=== PATIENT | female | born 2000 | race Caucasian/White ===

== ENCOUNTER 2021-07-11 18:47 | Emergency (ER) | payer MEDICAID ==
--- NOTE | 2021-07-11 19:27 | Diagnostic Imaging Report ---
Indication: Chest pain PA and lateral views of the chest are obtained. COMPARISON: No previous study is available for comparison at this time. FINDINGS: Heart size and pulmonary vasculature are within normal limits, and the lungs are clear, bilaterally. IMPRESSION: Unremarkable chest. Dictated by: Dictated on workstation # [id number]
[2021-07-11 19:36] LABS: BILIRUBIN,URINE NEGATIVE (NEGATIVE); CLARITY,URINE CLEAR; COLOR,URINE YELLOW; GLUCOSE, URINE (UA) NEGATIVE (NEGATIVE); KETONES,URINE NEGATIVE (NEGATIVE); LEUKOCYTE ESTERASE ,URINE NEGATIVE (NEGATIVE); NITRITE,URINE NEGATIVE (NEGATIVE); PROTEIN,URINE 1+ (NEGATIVE)
--- NOTE | 2021-07-11 19:42 | ED Cardiac General ---
History of Present Illness General Chief Complaint: Cardiac/General Problems Stated Complaint: CHEST PAIN, HIGH HEART RATE Nursing Triage Note: PT AMB TO RM 3 WITH FAMILY WITH C/O CHEST PAIN FOR A FEW DAYS THAT IS SHARP AND INTERMITTENT. PT SAW PCP IN [facility] YESTERDAY AND WAS TOLD HE WANTS TO PUT HER ON A HALTER MONITOR NEXT WEEK Source: patient History of Present Illness Date Seen by Provider: Jul 11, 2021 Time Seen by Provider: 19:09 Initial Comments PT ARRIVES VIA POV FROM HOME WITH AUNT AND OTHER CHILDREN PT C/O LEFT UPPER CHEST PAIN AND ELEVATED HEART RATE--STATES ON HER PHONE, IT HAS REPORTED HEART RATE HIGH 180, BUT NOT THAT HIGH RECENTLY STATES "IT'S BEEN GOING ON FOR AWHILE NOW"--ONGOING FOR A COUPLE OF MONTHS SYMPTOMS COME AND GO AND IS NOT PRESENT NOW NOTHING WORSENS OR IMPROVES SYMPTOMS OCCASIONALLY GETS A LITTLE SHORT OF BREATH WITH IT, BUT NOT NOW. NO DIZZINESS OR SYNCOPE NO NAUSEA/VOMITING NO FEVER OR RECENT ILLNESS NO COUGH, ETC PT DID HAVE A SPONTANEOUS PNEUMOTHORAX 04/2020 DUE TO VAPING--DID REQUIRE A CHEST TUBE AT THAT TIME. PT STATES THIS DOES NOT FEEL LIKE THAT AT ALL STATES SHE NO LONGER VAPES AND DOES NOT SMOKE CIGARETTES OR ANY SUBSTANCE. DENIES ANY SIGNIFICANT CAFFEINE USE OR ENERGY DRINKS, ETC. SYMPTOMS ARE NO DIFFERENT TONIGHT IN ANY WAY. WENT TO SEE JORJE ROPER IN [facility] ON FRIDAY/ YESTERDAY FOR THIS PROBLEM. NO TESTS WERE DONE. NO RX'S GIVEN PT STATES "HE WANTED TO DO A HOLTER MONITOR, BUT THERE WEREN'T ANY AVAILABLE YESTERDAY" AT [facility]. SHE STATES HE WAS ALSO GOING TO REFER HER TO A AUTOMOBILE SEAT COVER INSTALLER IN [place]. LMP--2 WEEKS AGO, QUIT TAKING CONTROL PILLS 1 WEEK AGO PCP: JORJE ROPER. [facility] Review of Systems Review of Systems Constitutional: no symptoms reported; No chills, No diaphoresis, No dizziness, No fever, No malaise, No weakness Respiratory: See HPI Cardiovascular: See HPI Gastrointestinal: No Symptoms Reported Genitourinary: No Symptoms Reported Musculoskeletal: no symptoms reported Skin: no symptoms reported Psychiatric/Neurological: No Symptoms Reported Endocrine: No Symptoms Reported Hematologic/Lymphatic: No Symptoms Reported Past Jjjmuxu-Schizr-Bzyctz Hx Patient Social History Tobacco Use?: No Use of E-Cig and/or Vaping dev: No Substance use?: No Alcohol Use?: No Pt feels they are or have been: No Immunizations Up To Date First/Initial COVID19 Vaccinat: 2020 Second COVID19 Vaccination Raheel: 2020 COVID19 Vaccine General Assistant: EWELINA Past Medical History Last Menstrual Period: Jun 27, 2021 Physical Exam Vital Signs Vital Signs - First Documented 07/11/21 18:50 Temp 36.1 Pulse 107 Resp 18 B/P (MAP) 131/80 (97) Capillary Refill : Height, Weight, BMI Height: '" Weight: lbs. oz. kg; BMI Method: General Appearance: No Apparent Distress, WD/WN, Other (DOES NOT APPEAR ILL OR TO BE IN ANY DISCOMFORT OR DISTRESS) Neck: Normal Inspection Respiratory: Chest Non Tender, Normal Breath Sounds, No Accessory Muscle Use, No Respiratory Distress Cardiovascular: Regular Rate, Rhythm, No Edema, No JVD, No Murmur, Normal Peripheral Pulses Gastrointestinal: Non Tender, Soft Progress/Results/Core Measures Results/Orders Lab Results Laboratory Tests Test 07/11/21 19:27 07/11/21 19:45 Range/Units Urine Color YELLOW Urine Clarity CLEAR Urine pH 6.0 5-9 Urine Specific [place] >=1.030 1.016-1.022 Urine Protein 1+ H NEGATIVE Urine Glucose (UA) NEGATIVE NEGATIVE Urine Ketones NEGATIVE NEGATIVE Urine Nitrite NEGATIVE NEGATIVE Urine Bilirubin NEGATIVE NEGATIVE Urine Urobilinogen 0.2 < = 1.0 MG/DL Urine Leukocyte Esterase NEGATIVE NEGATIVE Urine RBC (Auto) 1+ H NEGATIVE Urine RBC NONE /HPF Urine WBC 5-10 H /HPF Urine Squamous Epithelial Cells 0-2 /HPF Urine Renal Epithelial Cells NONE /HPF Urine Crystals NONE /LPF Urine Bacteria LARGE H /HPF Urine Casts NONE /LPF Urine Mucus NEGATIVE /LPF Urine Culture Indicated YES Urine Opiates Screen NEGATIVE NEGATIVE Urine Oxycodone Screen NEGATIVE NEGATIVE Urine Methadone Screen NEGATIVE NEGATIVE Urine Propoxyphene Screen NEGATIVE NEGATIVE Urine Barbiturates Screen NEGATIVE NEGATIVE Ur Tricyclic Antidepressants Screen NEGATIVE NEGATIVE Urine Phencyclidine Screen NEGATIVE NEGATIVE Urine Amphetamines Screen NEGATIVE NEGATIVE Urine Methamphetamines Screen NEGATIVE NEGATIVE Urine Benzodiazepines Screen NEGATIVE NEGATIVE Urine Cocaine Screen NEGATIVE NEGATIVE Urine Cannabinoids Screen NEGATIVE NEGATIVE White Blood Count 8.8 4.3-11.0 10^3/uL Red Blood Count 4.18 3.80-5.11 10^6/uL Hemoglobin 12.7 11.5-16.0 g/dL Hematocrit 38 35-52 % Mean Corpuscular Volume 91 80-99 fL Mean Corpuscular Hemoglobin 30 25-34 pg Mean Corpuscular Hemoglobin Concent 33 32-36 g/dL Red Cell Distribution Width 12.4 10.0-14.5 % Platelet Count 224 130-400 10^3/uL Mean Platelet Volume 11.9 9.0-12.2 fL Immature Granulocyte % (Auto) 0 % Neutrophils (%) (Auto) 60 42-75 % Lymphocytes (%) (Auto) 29 12-44 % Monocytes (%) (Auto) 9 0-12 % Eosinophils (%) (Auto) 1 0-10 % Basophils (%) (Auto) 0 0-10 % Neutrophils # (Auto) 5.3 1.8-7.8 10^3/uL Lymphocytes # (Auto) 2.5 1.0-4.0 10^3/uL Monocytes # (Auto) 0.8 0.0-1.0 10^3/uL Eosinophils # (Auto) 0.1 0.0-0.3 10^3/uL Basophils # (Auto) 0.0 0.0-0.1 10^3/uL Immature Granulocyte # (Auto) 0.0 0.0-0.1 10^3/uL D-Dimer 0.25 0.00-0.49 UG/ML Sodium Level 141 135-145 MMOL/L Potassium Level 3.5 L 3.6-5.0 MMOL/L Chloride Level 105 98-107 MMOL/L Carbon Dioxide Level 21 21-32 MMOL/L Anion Gap 15 H 5-14 MMOL/L Blood Urea Nitrogen 11 7-18 MG/DL Creatinine 0.83 0.60-1.30 MG/DL Estimat Glomerular Filtration Rate 104 BUN/Creatinine Ratio 13 Glucose Level 105 70-105 MG/DL Calcium Level 9.3 8.5-10.1 MG/DL Corrected Calcium 9.0 8.5-10.1 MG/DL Magnesium Level 1.8 1.6-2.4 MG/DL Total Bilirubin 0.3 0.1-1.0 MG/DL Aspartate Amino Transf (AST/SGOT) 21 5-34 U/L Alanine Aminotransferase (ALT/SGPT) 25 0-55 U/L Alkaline Phosphatase 80 40-136 U/L Troponin I < 0.028 <0.028 NG/ML B-Type Natriuretic Peptide < 10.0 <100.0 PG/ML Total Protein 7.3 6.4-8.2 GM/DL Albumin 4.4 3.2-4.5 GM/DL TSH [place] Testing 2.69 0.35-4.94 UIU/ML My Orders Orders - RITANIRANJAN Layne Ed Iv/Invasive Line Start (07/11/21 19:09) Urine Bedside (07/11/21 19:09) Ekg Tracing (07/11/21 19:09) Monitor-Rhythm Ecg Trace Only (07/11/21 19:09) Bnp [place] (07/11/21 19:09) Cbc With Automated Diff (07/11/21 19:09) Comprehensive Metabolic Panel (07/11/21 19:09) Fibrin Degradation Products (07/11/21 19:09) Drug Screen Stat (Urine) (07/11/21 19:09) Magnesium (07/11/21 19:09) Thyroid Analyzer (07/11/21 19:09) Ua Culture If Indicated (07/11/21 19:09) Troponin I Jossie (07/11/21 19:09) Chest Pa/Lat (2 View) (07/11/21 19:09) Urine Culture (07/11/21 19:27) Vital Signs/I&O 07/11/21 18:50 Temp 36.1 Pulse 107 Resp 18 B/P (MAP) 131/80 (97) Blood Pressure Mean: 97 Progress Progress Note : Progress Note NO SYMPTOMS DURING ER STAY NO CHEST PAIN NO SENSATION OF PALPITATIONS OR ARRHYTHMIAS. HAD MILD TACHYCARDIA UP TO 110'S--PT STATES SHE IS ANXIOUS DUE TO AN BELLIGERENT AND AGITATED PATIENT IN ADJACENT BED IN SAME ROOM PATIENT. NO DYSPNEA NO HYPOXIA BP NORMAL. Initial ECG Impression Date: Jul 11, 2021 Initial ECG Impression Time: 20:04 Initial ECG Rate: 111 Initial ECG Rhythm: S.Tach Diagnostic Imaging Comments CXR--PER RADIOLOGIST REPORT AT 1942 time. FINDINGS: Heart size and pulmonary vasculature are within normal limits, and the lungs are clear, bilaterally. IMPRESSION: Unremarkable chest. Reviewed: Reviewed by Me Departure Impression Primary Impression: MILD TACHYCARDIA Additional Impressions: Chest pain Anxiety UTI (urinary tract infection) Disposition: HOME, SELF-CARE Condition: Stable Departure-Patient Inst. Decision time for Depature: 20:44 Referrals: JAKE MAGAÑA JR, MD Patient Instructions: Chest Pain, Adult ED, Palpitations (DC), Urinary Tract Infection, Adult ED Add. Discharge Instructions: HOME, REST NO CAFFEINE OR ENERGY DRINKS, ETC. FOLLOW UP WITH DR. MAGAÑA, AUTOMOBILE SEAT COVER INSTALLER, OR WITH AUTOMOBILE SEAT COVER INSTALLER IN [place] THAT IS BEING ARRANGED BY YOUR LARD REFINER IN [facility]. RETURN TO ER IF SYMPTOMS WORSEN All discharge instructions reviewed with patient and/or family. Voiced understanding. Scripts Nitrofurantoin Monohyd/M-Cryst (Macrobid 100 mg Capsule) 100 Mg Capsule 1 TAB PO BID, #20 CAP Prov: NIRANJAN SALINAS DO 07/11/21 NIRANJAN SALINAS DO Jul 11, 2021 19:42
[2021-07-11 19:45] LABS: BACTERIA,URINE LARGE /HPF; SQUAMOUS EPITHELIAL CELL,UR 0-2 /HPF
[2021-07-11 19:48] LABS: AMPHETAMINE SCREEN, URINE NEGATIVE (NEGATIVE); BARBITURATE SCREEN URINE NEGATIVE (NEGATIVE); BENZODIAZEPINES SCREEN URINE NEGATIVE (NEGATIVE); CANNABINOID SCREEN, URINE NEGATIVE (NEGATIVE); COCAINE SCREEN URINE NEGATIVE (NEGATIVE); METHADONE STAT NEGATIVE (NEGATIVE); METHAMPHETAMINE SCREEN URINE S NEGATIVE (NEGATIVE); OPIATE SCREEN URINE NEGATIVE (NEGATIVE); OXYCODONE STAT NEGATIVE (NEGATIVE); PROPOXYPHENE STAT NEGATIVE (NEGATIVE); TRICYCLIC ANTIDEPRESSANTS SCRE NEGATIVE (NEGATIVE)
[2021-07-11 19:55] LABS: BASOPHILS % (AUTO) 0 % (0-10); EOSINOPHILS # (AUTO) 0.1 10^3/uL (0.0-0.3); EOSINOPHILS % (AUTO) 1 % (0-10); HEMATOCRIT 38 % (35-52); HEMOGLOBIN 12.7 g/dL (11.5-16.0); LYMPHOCYTES # (AUTO) 2.5 10^3/uL (1.0-4.0); LYMPHOCYTES % (AUTO) 29 % (12-44); MEAN CORPUSCULAR HEMOGLOBIN 30 pg (25-34); MEAN CORPUSCULAR HGB CONC 33 g/dL (32-36); MEAN CORPUSCULAR VOLUME 91 fL (80-99); MEAN PLATELET VOLUME 11.9 fL (9.0-12.2); MONOCYTES # (AUTO) 0.8 10^3/uL (0.0-1.0); MONOCYTES % (AUTO) 9 % (0-12); NEUTROPHILS # (AUTO) 5.3 10^3/uL (1.8-7.8); NEUTROPHILS % (AUTO) 60 % (42-75); PLATELET COUNT 224 10^3/uL (130-400); WHITE BLOOD COUNT 8.8 10^3/uL (4.3-11.0)
[2021-07-11 20:07] LABS: ALBUMIN 4.4 GM/DL (3.2-4.5); CHLORIDE 105 MMOL/L (98-107); POTASSIUM 3.5 MMOL/L (3.6-5.0); SODIUM 141 MMOL/L (135-145)
[2021-07-11 20:08] LABS: CALCIUM 9.3 MG/DL (8.5-10.1)
[2021-07-11 20:09] LABS: GLUCOSE 105 MG/DL (70-105); TOTAL PROTEIN 7.3 GM/DL (6.4-8.2)
[2021-07-11 20:11] LABS: BILIRUBIN,TOTAL 0.3 MG/DL (0.1-1.0); CARBON DIOXIDE 21 MMOL/L (21-32)
[2021-07-11 20:13] LABS: ALKALINE PHOSPHATASE 80 U/L (40-136); CREATININE SERUM 0.83 MG/DL (0.60-1.30); GFR ESTIMATED 104
[2021-07-11 20:14] LABS: BUN/CREATININE RATIO 13
[2021-07-11 20:16] LABS: ALANINE AMINOTRANSFERASE 25 U/L (0-55)
[2021-07-11 20:17] LABS: MAGNESIUM 1.8 MG/DL (1.6-2.4)
[2021-07-11 20:38] LABS: TSH (THYROID ANALYZER) 2.69 UIU/ML (0.35-4.94)
[2021-07-11] MEDS ORDERED: NITR-65 PO (20:46)
[2021-07-11 20:58] VITALS: BP 120/74
== END 2021-07-11 21:02 | disposition home or self-care (01) ==
LOC: ER 18:51
DX: R00.0 Tachycardia, unspecified (principal); F41.9 Anxiety disorder, unspecified; N39.0 Urinary tract infection, site not specified
CPT/HCPCS: 36415; 71046; 80053; 80306; 81000; 83735; 83880; 84443; 84484; 84703; 85025; 85379; 87088; 93005; 93041

== ENCOUNTER 2021-10-17 17:38 | Emergency (ER) | payer MEDICAID ==
[~2021-10-17] VITALS: Ht 165 cm; Wt 56.0 kg
[~2021-10-17 17:38] MED LIST: NITR-65 PO
[2021-10-17 17:53] VITALS: BP 138/95
[2021-10-17 18:33] LABS: BILIRUBIN,URINE NEGATIVE (NEGATIVE); CLARITY,URINE SL CLOUDY; COLOR,URINE YELLOW; GLUCOSE, URINE (UA) NEGATIVE (NEGATIVE); KETONES,URINE NEGATIVE (NEGATIVE); LEUKOCYTE ESTERASE ,URINE 1+ (NEGATIVE); NITRITE,URINE POSITIVE (NEGATIVE); PROTEIN,URINE 2+ (NEGATIVE)
[2021-10-17 18:41] LABS: BASOPHILS % (AUTO) 0 % (0-10); EOSINOPHILS # (AUTO) 0.1 10^3/uL (0.0-0.3); EOSINOPHILS % (AUTO) 1 % (0-10); HEMATOCRIT 40 % (35-52); HEMOGLOBIN 12.9 g/dL (11.5-16.0); LYMPHOCYTES # (AUTO) 2.2 10^3/uL (1.0-4.0); LYMPHOCYTES % (AUTO) 21 % (12-44); MEAN CORPUSCULAR HEMOGLOBIN 30 pg (25-34); MEAN CORPUSCULAR HGB CONC 32 g/dL (32-36); MEAN CORPUSCULAR VOLUME 92 fL (80-99); MEAN PLATELET VOLUME 12.3 fL (9.0-12.2); MONOCYTES % (AUTO) 9 % (0-12); NEUTROPHILS # (AUTO) 6.9 10^3/uL (1.8-7.8); NEUTROPHILS % (AUTO) 68 % (42-75); PLATELET COUNT 203 10^3/uL (130-400); WHITE BLOOD COUNT 10.2 10^3/uL (4.3-11.0)
[2021-10-17 18:41] LABS: BACTERIA,URINE LARGE /HPF; RBC,URINE 50-100 /HPF; WBC,URINE 50-100 /HPF
[2021-10-17 18:49] LABS: ALBUMIN 4.5 GM/DL (3.2-4.5); POTASSIUM 3.7 MMOL/L (3.6-5.0)
[2021-10-17 18:50] LABS: CALCIUM 9.2 MG/DL (8.5-10.1)
[2021-10-17 18:51] LABS: TOTAL PROTEIN 7.4 GM/DL (6.4-8.2)
[2021-10-17 18:53] LABS: BILIRUBIN,TOTAL 0.2 MG/DL (0.1-1.0)
[2021-10-17 18:55] LABS: CREATININE SERUM 0.82 MG/DL (0.60-1.30)
[2021-10-17] MEDS ORDERED: SULF1TAB38 PO (19:10)
[2021-10-17] MEDS ORDERED: PHEN-640 PO (19:10)
--- NOTE | 2021-10-17 19:10 | ED GU-Female ---
General Chief Complaint: - Reproductive Stated Complaint: ABDOMINAL PAIN, POSSIBLE UTI Nursing Triage Note: PT AMB TO RM 4 A/O X4 WITH HER AUNT. PT STATED THAT SHE HAS HAD DIFFICULTY URINING, LEFT ABDOMEN PAIN, AND FLANK PAIN. PT STATED THAT THE URINARY PAIN STARTED 4 DAYS AGO. Source: patient Exam Limitations: no limitations History of Present Illness Date Seen by Provider: Oct 17, 2021 Time Seen by Provider: 18:51 Allergies and Home Medications Allergies Coded Allergies: No Known Drug Allergies (Unverified , 10/17/21) Patient Home Medication List Nitrofurantoin Monohyd/M-Cryst (Macrobid 100 mg Capsule) 100 Mg Capsule, 1 TAB PO BID Prescribed by: NIRANJAN SALINAS on 07/11/212045 Phenazopyridine HCl (Pyridium) 200 Mg Tablet, 200 MG PO Q8H PRN for PAIN- BREAKTHROUGH Prescribed by: TRIPP ROPER on 10/17/211909 Sulfamethoxazole/Trimethoprim (Bactrim Ds Tablet) 1 Each Tablet, 1 EACH PO BID Prescribed by: TRIPP ROPER on 10/17/211909 Past Hyvjlah-Yjicve-Frehke Hx Patient Social History Substance use?: No Alcohol Use?: Yes Alcohol Frequency: Several times a month Pt feels they are or have been: No Immunizations Up To Date First/Initial COVID19 Vaccinat: 2020 Second COVID19 Vaccination Raheel: 2020 Third COVID19 Vaccination Date: 2020 Past Medical History Last Menstrual Period: Oct 17, 2021 Physical Exam Vital Signs Vital Signs - First Documented 10/17/21 17:53 Temp 36.3 Pulse 99 Resp 12 B/P (MAP) 138/95 (109) Pulse Ox 98 O2 Delivery Room Air Capillary Refill : Less Than 3 Seconds Height, Weight, BMI Height: '" Weight: lbs. oz. kg; 20.00 BMI Method: Progress/Results/Core Measures Suspected Sepsis SIRS Temperature: Pulse: 99 Respiratory Rate: 12 Laboratory Tests 10/17/21 18:30: White Blood Count 10.2 Blood Pressure 138 /95 Mean: 109 Laboratory Tests 10/17/21 18:30: Creatinine 0.82, Platelet Count 203, Total Bilirubin 0.2 Results/Orders Lab Results Laboratory Tests Test 10/17/21 18:27 10/17/21 18:30 Range/Units Urine Color YELLOW Urine Clarity SL CLOUDY Urine pH 6.0 5-9 Urine Specific [place] >=1.030 1.016-1.022 Urine Protein 2+ H NEGATIVE Urine Glucose (UA) NEGATIVE NEGATIVE Urine Ketones NEGATIVE NEGATIVE Urine Nitrite POSITIVE H NEGATIVE Urine Bilirubin NEGATIVE NEGATIVE Urine Urobilinogen 0.2 < = 1.0 MG/DL Urine Leukocyte Esterase 1+ H NEGATIVE Urine RBC (Auto) 3+ H NEGATIVE Urine RBC 50-100 H /HPF Urine WBC 50-100 H /HPF Urine Squamous Epithelial Cells 2-5 /HPF Urine Crystals NONE /LPF Urine Bacteria LARGE H /HPF Urine Casts NONE /LPF Urine Mucus NEGATIVE /LPF Urine Culture Indicated YES White Blood Count 10.2 4.3-11.0 10^3/uL Red Blood Count 4.38 3.80-5.11 10^6/uL Hemoglobin 12.9 11.5-16.0 g/dL Hematocrit 40 35-52 % Mean Corpuscular Volume 92 80-99 fL Mean Corpuscular Hemoglobin 30 25-34 pg Mean Corpuscular Hemoglobin Concent 32 32-36 g/dL Red Cell Distribution Width 13.1 10.0-14.5 % Platelet Count 203 130-400 10^3/uL Mean Platelet Volume 12.3 H 9.0-12.2 fL Immature Granulocyte % (Auto) 0 % Neutrophils (%) (Auto) 68 42-75 % Lymphocytes (%) (Auto) 21 12-44 % Monocytes (%) (Auto) 9 0-12 % Eosinophils (%) (Auto) 1 0-10 % Basophils (%) (Auto) 0 0-10 % Neutrophils # (Auto) 6.9 1.8-7.8 10^3/uL Lymphocytes # (Auto) 2.2 1.0-4.0 10^3/uL Monocytes # (Auto) 1.0 0.0-1.0 10^3/uL Eosinophils # (Auto) 0.1 0.0-0.3 10^3/uL Basophils # (Auto) 0.0 0.0-0.1 10^3/uL Immature Granulocyte # (Auto) 0.0 0.0-0.1 10^3/uL Sodium Level 141 135-145 MMOL/L Potassium Level 3.7 3.6-5.0 MMOL/L Chloride Level 105 98-107 MMOL/L Carbon Dioxide Level 24 21-32 MMOL/L Anion Gap 12 5-14 MMOL/L Blood Urea Nitrogen 10 7-18 MG/DL Creatinine 0.82 0.60-1.30 MG/DL Estimat Glomerular Filtration Rate 106 BUN/Creatinine Ratio 12 Glucose Level 98 70-105 MG/DL Calcium Level 9.2 8.5-10.1 MG/DL Corrected Calcium 8.8 8.5-10.1 MG/DL Total Bilirubin 0.2 0.1-1.0 MG/DL Aspartate Amino Transf (AST/SGOT) 18 5-34 U/L Alanine Aminotransferase (ALT/SGPT) 21 0-55 U/L Alkaline Phosphatase 76 40-136 U/L Total Protein 7.4 6.4-8.2 GM/DL Albumin 4.5 3.2-4.5 GM/DL My Orders Orders - TRIPP ROPER APRN Ua Culture If Indicated (10/17/21 17:40) Urine Bedside (10/17/21 17:40) Cbc With Automated Diff (10/17/21 18:08) Comprehensive Metabolic Panel (10/17/21 18:08) Urine Culture (10/17/21 18:27) Phenazopyridine Tablet (Pyridium Tablet) (10/17/21 19:15) Ceftriaxone 1 Gm Pre-Mix (Rocephin 1 Gm (10/17/21 19:15) Vital Signs/I&O 10/17/21 17:53 Temp 36.3 Pulse 99 Resp 12 B/P (MAP) 138/95 (109) Pulse Ox 98 O2 Delivery Room Air Capillary Refill : Less Than 3 Seconds Blood Pressure Mean: 109 Departure Impression Primary Impression: Acute pyelonephritis Disposition: 01 HOME, SELF-CARE Condition: Improved Departure-Patient Inst. Decision time for Depature: 19:06 Referrals: NO,LOCAL PHYSICIAN (PCP/Family) Primary Care Physician Patient Instructions: Kidney Infection (DC) Add. Discharge Instructions: Plan: 1. Drink plenty of fluids to stay hydrated. 2. Take antibiotics twice a day as directed and complete full course even if you begin to feel better. 3. Take Diflucan for vaginal discharge/itching. This is a one time tablet. 4. Return for any new, concerning, or worsening symptoms. All discharge instructions reviewed with patient and/or family. Voiced understanding. Scripts Fluconazole (Diflucan) 150 Mg Tablet 150 MG PO ONCE for 1 Day, #1 TAB 1 Refill Prov: TRIPP ROPER NIGHT SUPERVISOR 10/17/21 Phenazopyridine HCl (Pyridium) 200 Mg Tablet 200 MG PO Q8H PRN for PAIN-BREAKTHROUGH, #7 TAB 0 Refills Prov: TRIPP ROPER NIGHT SUPERVISOR 10/17/21 Sulfamethoxazole/Trimethoprim (Bactrim Ds Tablet) 1 Each Tablet 1 EACH PO BID for 10 Days, #20 TAB 0 Refills Prov: TRIPP ROPER NIGHT SUPERVISOR 10/17/21 TRIPP ROPER NIGHT SUPERVISOR Oct 17, 2021 19:10
[2021-10-17] MEDS ORDERED: FLUC150T PO (19:14)
[2021-10-17] MEDS ORDERED: PHENAZOPYRIDINE 100 MG (PYRIDIUM) TABLET PO ONE (19:15)
[2021-10-17] MEDS ORDERED: cefTRIAXone 1 GM PRE-MIX 50 ML IV ONE (19:15)
== END 2021-10-17 19:44 | disposition home or self-care (01) ==
LOC: EDUNIT# 17:38 → ER 17:39
DX: N10 Acute pyelonephritis (principal)
CPT/HCPCS: 36415; 80053; 81000; 84703; 85025; 87088

== ENCOUNTER 2021-10-28 11:34 | Emergency (ER) | payer MEDICAID ==
[~2021-10-28] VITALS: Ht 165 cm; Wt 56.6 kg
[~2021-10-28 11:34] MED LIST changes: +FLUC150T PO; +PHEN-640 PO; +SULF1TAB38 PO
--- NOTE | 2021-10-28 11:59 | ED Integumentary General ---
General Chief Complaint: Allergic Reaction Stated Complaint: ALLERGIC REACTION/RASH Nursing Triage Note: PT PRESENTS TO ED VIA POV FROM HOME WITH COMPLAINTS OF GENERALIZED RASH STARTING YESTERDAY. PT REPORTS SHE HAS BEEN TAKING BENADRYL AND PEPCID EVERY 2 HOURS BUT NO RELIEF TODAY. PT REPORTS SHE HAS BEEN ON BACTROM FOR 10 DAYS FOR A UTI. Source: patient Exam Limitations: no limitations History of Present Illness Date Seen by Provider: Oct 28, 2021 Time Seen by Provider: 11:57 Initial Comments Patient is a 20-year-old female who presents to the ED with diffuse erythematous papular rash. Symptoms started yesterday. Patient states rash was more edematous and blotchy. Took Benadryl and Pepcid with some improvement. Rash became worse today with a rash to the face. No difficulty breathing, sore throat. Patient Was placed on Bactrim for 10 days for UTI and kidney flexion 2 weeks ago. Patient did not take her last dose. Currently being managed by jean-pierre ASCENCIO at [place]. She denies having nausea, vomiting, diarrhea, difficulty breathing. Denies of any known medical problems. Denies of any recent soap changes, detergent changes, food changes. Denies chest pain, shortness of breath, sore throat, sloughing of the skin, fever. She states rash itches on the face Allergies and Home Medications Allergies Coded Allergies: No Known Drug Allergies (Unverified , 10/17/21) Patient Home Medication List Home Medication List Reviewed: Yes Fluconazole (Diflucan) 150 Mg Tablet, 150 MG PO ONCE Prescribed by: TRIPP ROPER on 10/17/211913 Hydroxyzine HCl (Hydroxyzine HCl) 25 Mg Tablet, 25 MG PO Q6H Prescribed by: SILVA FITZGERALD on 10/28/21 1305 Nitrofurantoin Monohyd/M-Cryst (Macrobid 100 mg Capsule) 100 Mg Capsule, 1 TAB PO BID Prescribed by: NIRANJAN SALINAS on 07/11/212045 Phenazopyridine HCl (Pyridium) 200 Mg Tablet, 200 MG PO Q8H PRN for PAIN- BREAKTHROUGH Prescribed by: TRIPP ROPER on 10/17/211909 Prednisone (Prednisone) 20 Mg Tab, 40 MG PO DAILY Prescribed by: SILVA FITZGERALD on 10/28/21 1305 Sulfamethoxazole/Trimethoprim (Bactrim Ds Tablet) 1 Each Tablet, 1 EACH PO BID Prescribed by: TRIPP ROPER on 10/17/211909 Review of Systems Review of Systems Constitutional: No chills, No diaphoresis, No malaise, No weakness EENTM: No hearing loss, No blurred vision, No double vision Respiratory: No cough, No dyspnea on exertion Cardiovascular: No chest pain Gastrointestinal: No abdominal pain, No diarrhea, No nausea Genitourinary: No decreased output, No discharge Musculoskeletal: No back pain, No joint pain Skin: change in color, change in hair/nails, pruritus, rash Past Jzwvcnt-Imdwjp-Mzpzdg Hx Patient Social History Tobacco Use?: No Substance use?: No Alcohol Use?: Yes Alcohol Frequency: Once in a while Pt feels they are or have been: No Immunizations Up To Date First/Initial COVID19 Vaccinat: 2020 Second COVID19 Vaccination Raheel: 2020 Third COVID19 Vaccination Date: 2020 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: [employer] Physical Exam Vital Signs Vital Signs - First Documented 10/28/21 11:48 Temp 36.5 Pulse 99 Resp 16 B/P (MAP) 113/84 (94) Pulse Ox 100 Capillary Refill : General Appearance: WD/WN, no apparent distress HEENT: PERRL/EOMI, normal ENT inspection, TMs normal, pharynx normal Neck: non-tender, full range of motion, supple, normal inspection Cardiovascular: regular rate, rhythm, no edema, no gallop, no JVD; No no murmur Respiratory: chest non-tender, lungs clear, normal breath sounds, no respiratory distress, no accessory muscle use Gastrointestinal: No normal bowel sounds, No non tender, No soft Back: No normal inspection, No no CVA tenderness Extremities: normal range of motion Neurologic/Psychiatric: complaint clerk II-XII nml as tested, no motor/sensory deficits, alert Skin: other (Diffuse erythematous papular rash. No purulent drainage, vesicles, pustules) Progress/Results/Core Measures Results/Orders Lab Results Laboratory Tests Test 10/28/21 12:19 10/28/21 12:59 Range/Units White Blood Count 3.0 L 4.3-11.0 10^3/uL Red Blood Count 4.30 3.80-5.11 10^6/uL Hemoglobin 12.7 11.5-16.0 g/dL Hematocrit 39 35-52 % Mean Corpuscular Volume 91 80-99 fL Mean Corpuscular Hemoglobin 30 25-34 pg Mean Corpuscular Hemoglobin Concent 32 32-36 g/dL Red Cell Distribution Width 13.5 10.0-14.5 % Platelet Count 184 130-400 10^3/uL Mean Platelet Volume 11.4 9.0-12.2 fL Immature Granulocyte % (Auto) 0 % Neutrophils (%) (Auto) 55 42-75 % Lymphocytes (%) (Auto) 26 12-44 % Monocytes (%) (Auto) 15 H 0-12 % Eosinophils (%) (Auto) 5 0-10 % Basophils (%) (Auto) 0 0-10 % Neutrophils # (Auto) 1.7 L 1.8-7.8 10^3/uL Lymphocytes # (Auto) 0.8 L 1.0-4.0 10^3/uL Monocytes # (Auto) 0.4 0.0-1.0 10^3/uL Eosinophils # (Auto) 0.2 0.0-0.3 10^3/uL Basophils # (Auto) 0.0 0.0-0.1 10^3/uL Immature Granulocyte # (Auto) 0.0 0.0-0.1 10^3/uL Sodium Level 139 135-145 MMOL/L Potassium Level 4.2 3.6-5.0 MMOL/L Chloride Level 106 98-107 MMOL/L Carbon Dioxide Level 21 21-32 MMOL/L Anion Gap 12 5-14 MMOL/L Blood Urea Nitrogen 12 7-18 MG/DL Creatinine 1.11 0.60-1.30 MG/DL Estimat Glomerular Filtration Rate 73 BUN/Creatinine Ratio 11 Glucose Level 86 70-105 MG/DL Calcium Level 9.1 8.5-10.1 MG/DL Corrected Calcium 8.8 8.5-10.1 MG/DL Total Bilirubin 0.3 0.1-1.0 MG/DL Aspartate Amino Transf (AST/SGOT) 21 5-34 U/L Alanine Aminotransferase (ALT/SGPT) 21 0-55 U/L Alkaline Phosphatase 67 40-136 U/L Total Protein 7.2 6.4-8.2 GM/DL Albumin 4.4 3.2-4.5 GM/DL Urine Color YELLOW Urine Clarity CLEAR Urine pH 6.0 5-9 Urine Specific [place] >=1.030 1.016-1.022 Urine Protein 1+ H NEGATIVE Urine Glucose (UA) NEGATIVE NEGATIVE Urine Ketones NEGATIVE NEGATIVE Urine Nitrite NEGATIVE NEGATIVE Urine Bilirubin NEGATIVE NEGATIVE Urine Urobilinogen 0.2 < = 1.0 MG/DL Urine Leukocyte Esterase NEGATIVE NEGATIVE Urine RBC (Auto) 1+ H NEGATIVE Urine RBC 0-2 /HPF Urine WBC RARE /HPF Urine Squamous Epithelial Cells 2-5 /HPF Urine Crystals NONE /LPF Urine Bacteria MODERATE H /HPF Urine Casts NONE /LPF Urine Mucus SMALL H /LPF Urine Culture Indicated YES Urine Test NEGATIVE NEGATIVE My Orders Orders - NASIM SCOTT Ed Iv/Invasive Line Start (10/28/21 11:54) Cbc With Automated Diff (10/28/21 11:54) Comprehensive Metabolic Panel (10/28/21 11:54) Methylprednisolone Sod Succ (Solu-Medrol (10/28/21 12:00) Diphenhydramine Injection (Benadryl Inje (10/28/21 12:00) Famotidine Injection (Pepcid Injection) (10/29/21 09:00) Urinalysis (10/28/21 11:54) Hcg,Qualitative Urine (10/28/21 11:54) Famotidine Injection (Pepcid Injection) (10/28/21 12:02) Urine Culture (10/28/21 12:59) Medications Given in ED Current Medications Medications Dose Ordered Sig/Wade Route Start Time Stop Time Status Last Admin Dose Admin Diphenhydramine HCl 25 mg ONCE ONCE IVP 10/28/21 12:00 10/28/21 12:01 DC 10/28/21 12:08 25 MG Methylprednisolone Sodium Succinate 80 mg ONCE ONCE IV 10/28/21 12:00 10/28/21 12:01 DC 10/28/21 12:08 80 MG Vital Signs/I&O 10/28/21 10/28/21 11:48 13:33 Temp 36.5 36.5 Pulse 99 87 Resp 16 16 B/P (MAP) 113/84 (94) 110/82 Pulse Ox 100 100 Blood Pressure Mean: 94 Departure Communication (PCP) Patient appears to be having allergic reaction. Did have some improvement with Benadryl yesterday but the rash returned. Was given IV Solu-Medrol, Pepcid and Benadryl with significant improvement. Patient lab work was otherwise unremarkable urinalysis improved. No current urinary symptoms or abdominal pain suggesting UTI. She did have some moderate amount of bacteria but no nitrates, white blood cells. We will wait till culture returns as she is currently asymptomatic. We will discharge with 4 days worth of steroids and she was requesting something different than Benadryl as this made her sleepy. We will attempt hydroxyzine. Continue with Pepcid for the next 4 days. If any worsening symptoms return back to ED for further evaluation. Likely secondary to the sulfa drug. No sloughing of the skin or oral lesions suggesting Aranda- Reji's syndrome. Continue monitoring at home. If any worsening symptoms return back to ED Impression Primary Impression: Allergic reaction Disposition: 01 HOME, SELF-CARE Condition: Stable Departure-Patient Inst. Decision time for Depature: 13:03 Referrals: [facility] (PCP/Family) Primary Care Physician Patient Instructions: Allergic Reaction ED Scripts Hydroxyzine HCl (Hydroxyzine HCl) 25 Mg Tablet 25 MG PO Q6H for Itching, #16 TAB Prov: NASIM SCOTT 10/28/21 Prednisone (Prednisone) 20 Mg Tab 40 MG PO DAILY for 4 Days, #8 TAB Prov: NASIM SCOTT 10/28/21 Work/School Note: Work Release Form Date Seen in the Emergency Department: Oct 28, 2021 Return to Work: Oct 30, 2021 NASIM SCOTT Oct 28, 2021 11:59
[2021-10-28] MEDS ORDERED: diphenhydrAMINE 50 MG/ML INJ (BENADRYL) IVP ONE (12:00)
[2021-10-28] MEDS ORDERED: methylPREDNISolone 40 MG/ML (Solu-MEDROL) VIAL IV ONE (12:00)
[2021-10-28] MEDS ORDERED: FAMOTIDINE 20MG/2ML IV (PEPCID) ONE (12:02)
[2021-10-28 12:25] LABS: BASOPHILS % (AUTO) 0 % (0-10); EOSINOPHILS # (AUTO) 0.2 10^3/uL (0.0-0.3); EOSINOPHILS % (AUTO) 5 % (0-10); HEMATOCRIT 39 % (35-52); HEMOGLOBIN 12.7 g/dL (11.5-16.0); LYMPHOCYTES # (AUTO) 0.8 10^3/uL (1.0-4.0); LYMPHOCYTES % (AUTO) 26 % (12-44); MEAN CORPUSCULAR HEMOGLOBIN 30 pg (25-34); MEAN CORPUSCULAR HGB CONC 32 g/dL (32-36); MEAN CORPUSCULAR VOLUME 91 fL (80-99); MEAN PLATELET VOLUME 11.4 fL (9.0-12.2); MONOCYTES # (AUTO) 0.4 10^3/uL (0.0-1.0); MONOCYTES % (AUTO) 15 % (0-12); NEUTROPHILS # (AUTO) 1.7 10^3/uL (1.8-7.8); NEUTROPHILS % (AUTO) 55 % (42-75); PLATELET COUNT 184 10^3/uL (130-400)
[2021-10-28 12:48] LABS: ALBUMIN 4.4 GM/DL (3.2-4.5)
[2021-10-28 12:49] LABS: POTASSIUM 4.2 MMOL/L (3.6-5.0)
[2021-10-28 12:50] LABS: CALCIUM 9.1 MG/DL (8.5-10.1)
[2021-10-28 12:51] LABS: TOTAL PROTEIN 7.2 GM/DL (6.4-8.2)
[2021-10-28 12:53] LABS: BILIRUBIN,TOTAL 0.3 MG/DL (0.1-1.0)
[2021-10-28 12:55] LABS: CREATININE SERUM 1.11 MG/DL (0.60-1.30)
[2021-10-28] MEDS ORDERED: PRD20T PO (13:05)
[2021-10-28] MEDS ORDERED: HYDR-700 PO (13:05)
[2021-10-28 13:13] LABS: BILIRUBIN,URINE NEGATIVE (NEGATIVE); CLARITY,URINE CLEAR; COLOR,URINE YELLOW; GLUCOSE, URINE (UA) NEGATIVE (NEGATIVE); KETONES,URINE NEGATIVE (NEGATIVE); LEUKOCYTE ESTERASE ,URINE NEGATIVE (NEGATIVE); NITRITE,URINE NEGATIVE (NEGATIVE); PROTEIN,URINE 1+ (NEGATIVE)
[2021-10-28 13:27] LABS: BACTERIA,URINE MODERATE /HPF; RBC,URINE 0-2 /HPF; WBC,URINE RARE /HPF
[2021-10-28 13:33] VITALS: BP 110/82
[2021-10-29] MEDS ORDERED: FAMOTIDINE 20MG/2ML IV (PEPCID) IVP SCH (09:00)
== END 2021-10-28 13:33 | disposition home or self-care (01) ==
LOC: EDUNIT# 11:34 → ER 11:36
DX: T78.40XA Allergy, unspecified, initial encounter (principal)
CPT/HCPCS: 36415; 80053; 81000; 84703; 85025; 87088

== ENCOUNTER 2021-11-20 18:00 | Emergency (ER) | payer MEDICAID ==
[~2021-11-20] VITALS: Ht 165.1 cm; Wt 58.9 kg
[~2021-11-20 18:00] MED LIST changes: +HYDR-700 PO; +PRD20T PO
--- NOTE | 2021-11-20 18:52 | ED Cough/URI ---
General Chief Complaint: Cough/Cold/Flu Symptoms Stated Complaint: CONGESTION Source: patient Exam Limitations: no limitations (NASIM SCOTT) History of Present Illness Date Seen by Provider: Nov 20, 2021 Time Seen by Provider: 18:51 Initial Comments CoughPatient is a 21-year-old female who presents the ED with. She states she was diagnosed with COVID on 06 November. She had flulike symptoms biotics fatigue weakness which improved. Start developing cough last week which has been constant. She has been taken Claritin as well as Robitussin without much improvement. Difficulty sleeping secondary to cough. Chest pain with the cough only. History of pneumothorax. Denies fever, nausea vomiting, diarrhea headache, shortness of breath, abdominal pain, dysuria, hematuria. Vital signs stable (NASIM SCOTT) Allergies and Home Medications Allergies Coded Allergies: No Known Drug Allergies (Unverified , 10/17/21) Patient Home Medication List Home Medication List Reviewed: Yes (NASIM SCOTT) Benzonatate (Tessalon Perles) 100 Mg Capsule, 200 MG PO TID PRN for COUGH Prescribed by: SILVA FITZGERALD on 11/20/211958 Doxycycline Monohydrate (Doxycycline Monohydrate) 100 Mg Tablet, 100 MG PO BID Prescribed by: SILVA FITZGERALD on 11/20/211958 Fluconazole (Diflucan) 150 Mg Tablet, 150 MG PO ONCE Prescribed by: TRIPP ROPER on 10/17/211913 Hydroxyzine HCl (Hydroxyzine HCl) 25 Mg Tablet, 25 MG PO Q6H Prescribed by: SILVA FITZGERALD on 10/28/21 1305 Nitrofurantoin Monohyd/M-Cryst (Macrobid 100 mg Capsule) 100 Mg Capsule, 1 TAB PO BID Prescribed by: NIRANJAN SALINAS on 07/11/212045 Phenazopyridine HCl (Pyridium) 200 Mg Tablet, 200 MG PO Q8H PRN for PAIN- BREAKTHROUGH Prescribed by: TRIPP ROPER on 10/17/211909 Prednisone (Prednisone) 20 Mg Tab, 40 MG PO DAILY Prescribed by: SILVA FITZGERALD on 10/28/21 1305 Sulfamethoxazole/Trimethoprim (Bactrim Ds Tablet) 1 Each Tablet, 1 EACH PO BID Prescribed by: TRIPP ROPER on 10/17/211909 Discontinued Medications Benzonatate (Tessalon Perles) 100 Mg Capsule, 200 MG PO TID Prescribed by: SILVA FITZGERALD on 11/20/211951 Doxycycline Monohydrate (Doxycycline Monohydrate) 100 Mg Tablet, 100 MG PO BID Prescribed by: SILVA FITZGERALD on 11/20/211951 Review of Systems Review of Systems Constitutional: No chills, No diaphoresis, No malaise, No weakness EENTM: No blurred vision, No double vision Respiratory: cough; No short of breath Cardiovascular: No chest pain Gastrointestinal: No abdominal pain, No diarrhea, No nausea, No vomiting Genitourinary: No decreased output, No discharge Musculoskeletal: No back pain, No joint pain Skin: No change in color, No change in hair/nails (NASIM SCOTT) All Other Systems Reviewed Negative Unless Noted: Yes (NASIM SCOTT) Past Grnthll-Sijdhw-Gwwdjc Hx Immunizations Up To Date First/Initial COVID19 Vaccinat: 2020 Second COVID19 Vaccination Raheel: 2020 Third COVID19 Vaccination Date: 2020 (NASIM SCOTT) Physical Exam Vital Signs - First Documented 11/20/21 18:43 Temp 36.9 Pulse 95 Resp 13 B/P (MAP) 123/83 (96) Pulse Ox 98 O2 Delivery Room Air (DEAN WORRELL MD) Capillary Refill : (NASIM SCOTT) Height: '" Weight: lbs. oz. kg; 20.00 BMI Method: General Appearance: WD/WN, no apparent distress Eyes: Bilateral Eye Normal Inspection, Bilateral Eye PERRL, Bilateral Eye EOMI HEENT: PERRL/EOMI, normal ENT inspection, TMs normal, pharynx normal Neck: non-tender, full range of motion, supple Respiratory: chest non-tender, lungs clear, normal breath sounds, no respiratory distress Cardiovascular: regular rate, rhythm, no edema, no gallop, no JVD Gastrointestinal: normal bowel sounds, non tender, soft, no organomegaly Extremities: normal range of motion, non-tender, normal inspection, no pedal edema Neurologic/Psychiatric: administrative court justice II-XII nml as tested, no motor/sensory deficits, alert, normal mood/affect, oriented x 3 Skin: normal color, warm/dry (NASIM SCOTT) Progress/Results/Core Measures Suspected Sepsis SIRS Temperature: Pulse: Respiratory Rate: Blood Pressure / Mean: (NASIM SCOTT) Results/Orders Vital Signs/I&O 11/20/21 11/20/21 18:43 19:57 Temp 36.9 36.5 Pulse 95 78 Resp 13 16 B/P (MAP) 123/83 (96) 123/83 Pulse Ox 98 99 O2 Delivery Room Air Room Air (DEAN WORRELL MD) Vital Signs/I&O Capillary Refill : (NASIM SCOTT) Departure Communication (PCP) Patient presents ED with cough. Diagnosed with COVID on the . Flulike symptoms improved besides a cough for the past week. No shortness of breath or wheezing. Does have some chest tightness with the cough. No improvement with Claritin or Robitussin. Patient vital signs stable. Chest x-ray was concerning for pneumonia to the left lung. Due to her current cough and symptoms patient will be discharged with doxycycline. Discharged with Tessalon Perles. She does not appear in acute distress. Healthy 21-year-old female with no known medical problems. Continue with antibiotics at home. If any worsening symptoms such as chest pain short of breath fever decreased intake to return back to ED for further evaluation. Recommend outpatient follow-up with chest x-ray in 7 days for resolution. (NASIM SCOTT) Impression Primary Impression: Pneumonia Disposition: 01 HOME, SELF-CARE Condition: Stable Departure-Patient Inst. Decision time for Depature: 19:51 (NASIM SCOTT) Referrals: [facility] (PCP/Family) Primary Care Physician Patient Instructions: Pneumonia in Adults Add. Discharge Instructions: Symptoms become worse such as short of breath, chest pain, fever to return back to ED. Follow-up outpatient with chest x-ray in 1 week. All discharge instructions reviewed with patient and/or family. Voiced understanding. Scripts Benzonatate (TESSALON PERLES) 100 Mg Capsule 200 MG PO TID PRN for COUGH, #20 CAP Prov: NASIM SCOTT 11/20/21 Doxycycline Monohydrate (Doxycycline Monohydrate) 100 Mg Tablet 100 MG PO BID for 7 Days, #14 TAB Prov: NASIM SCOTT 11/20/21 Work/School Note: Work Release Form Date Seen in the Emergency Department: Nov 20, 2021 Return to Work: Nov 26, 2021 ATTENDING PHYSICIAN NOTE: I was physically present as attending physician in the emergency department during the care of this patient, but I was not directly involved in the decision making or delivery of care for this patient. (DEAN WORRELL MD) NASIM SCOTT Nov 20, 2021 18:52 DEAN WORRELL MD Nov 21, 2021 04:29
--- NOTE | 2021-11-20 19:26 | Diagnostic Imaging Report ---
INDICATION: Cough and congestion. Recent Covid diagnosis. COMPARISON: 07/11/2021 FINDINGS: Single frontal radiographic view of the chest was obtained and demonstrates patchy alveolar airspace opacity in the left base partially obscuring the left heart border. Right lung is clear. No large effusion or pneumothorax is seen on either side. Cardiac silhouette and pulmonary vasculature are within normal limits. Osseous structures show no gross acute abnormalities. IMPRESSION: 1. Patchy airspace opacity in the left lung base concerning for pneumonia. Follow-up to resolution is recommended. Dictated by: Dictated on workstation # [id number]
[2021-11-20] MEDS ORDERED: DOXYCYCLINE 100 MG (VIBRAMYCIN) TABLET PO STA (19:50)
[2021-11-20] MEDS ORDERED: DOXY100T31 PO ×2 (19:52→19:59)
[2021-11-20] MEDS ORDERED: BENZ100C18 PO ×2 (19:52→19:59)
[2021-11-20 19:57] VITALS: BP 123/83
== END 2021-11-20 19:59 | disposition home or self-care (01) ==
LOC: EDUNIT# 18:00 → ER 18:02
DX: J18.9 Pneumonia, unspecified organism (principal); Z86.16 Personal history of COVID-19
CPT/HCPCS: 71045